=== PATIENT | female | born 1960 | race American Indian/Alaskan Native ===

== ENCOUNTER 2016-11-11 17:21 | Emergency (ER) | payer MEDICARE, MEDICAID | END 2016-11-11 18:56 | disposition left against medical advice (07) | LOC: DL.ED 17:21 | DX: Z53.21 Procedure and treatment not carried out due to patient leaving prior to being seen by health care provider (principal) ==

== ENCOUNTER 2016-11-19 18:52 | Emergency (ER) | payer MEDICARE, MEDICAID ==
[2016-11-19 20:26] LABS: CHLORIDE,CL 100 mmol/L (101-111); SODIUM,NA 132 mmol/L (135-145)
[2016-11-19] MEDS ORDERED: Sodium Chloride 0.9% 1,000 ML IV ONE (20:35)
[2016-11-19] MEDS ORDERED: Potassium Chloride 10 MEQ in Premix Bag 1 BAG IV ONE ×2 (20:35→23:07)
[2016-11-19] MEDS ORDERED: HYDROmorphone 1 MG/ML Syringe IVPUSH ONE (21:54)
[2016-11-19] MEDS ORDERED: Calcium Gluconate 10% 1 GM/10 ML SDV IVPUSH ONE (21:56)
[2016-11-19] MEDS ORDERED: HYDROmorphone 1 MG/ML Syringe IM ONE (22:04)
[2016-11-19 22:41] VITALS: BP 125/67
--- NOTE | 2016-11-19 23:07 | EDM.PDOC ---
ED HPI GI/ABDOMINAL - General Chief Complaint: Abdominal Pain Stated Complaint: LOOSE STOOLS ALL WEEK Time Seen by Provider: 11/19/16 23:02 Source of Information: Reports: Patient, Family History Limitations: Reports: No limitations - History of Present Illness INITIAL COMMENTS - FREE TEXT/NARRATIVE: ED with c/o weakness and abdominal pain, has had diarrhea for one week. estimates at least 10 times today, no blood, nausea, vomited x 4 last viet, nasuea continues today, not eating or drinking. Dialysis, last friday due tomorrow. Glucose at home in 100's. In clinic last week, started on flagyl and and bentyl, told to stop imodium. Location: generalized Quality: Reports: ache, cramping Severity: moderate Associated Symptoms (-Female): Reports: back pain, diarrhea, loss of appetite , malaise, nausea/vomiting. Denies: chest pain, groin pain, shoulder pain, bloody stools, fever/chills - Related Data Allergies/ADRs: Allergies Allergy/AdvReac Type Severity Reaction Status Date / Time azithromycin Allergy Cannot Verified 11/19/16 19:15 Remember codeine Allergy Nausea and Verified 11/19/16 19:15 Vomiting Home Meds: Home Meds Aspirin [Adult Low Dose Aspirin EC] 81 mg PO DAILY 02/24/14 [History] Fenofibric Acid 45 mg PO DAILY 02/24/14 [History] Insulin Detemir [Levemir] 60 units SQ DAILY 02/24/14 [History] Levothyroxine Sodium [Synthroid] 0.125 mg PO DAILY 02/24/14 [History] amLODIPine Besylate [Amlodipine Besylate] 10 mg PO DAILY 02/24/14 [History] Simvastatin [Zocor] 20 mg PO DAILY 03/28/14 [History] Magnesium Oxide 400 mg PO DAILY 11/21/14 [History] Cyclobenzaprine HCl 10 mg PO BID PRN 03/01/16 [History] Hydrocodone/Acetaminophen [Hydrocodon-Acetaminophen 5-325] 1 tab PO Q6H PRN [History] Midodrine 5 mg PO QID 03/01/16 [History] Potassium Chloride 20 mg PO DAILY 03/01/16 [History] Past Medical History HEENT History: Reports: Impaired vision, Sinusitis Other HEENT History: wears glasses Cardiovascular History: Reports: CAD, High cholesterol, Hypertension, SOB on exertion Respiratory History: Reports: COPD Gastrointestinal History: Reports: None, Chronic constipation Genitourinary History: Reports: Chronic renal insuffiency, Diabetic nephropathy [employer] History: Reports: None, Musculoskeletal History: Reports: Back pain, chronic Neurological History: Reports: None Psychiatric History: Reports: None Endocrine/Metabolic History: Reports: Diabetes, type II, Hypothyroidism, IDDM, Obesity/BMI 30+ Hematologic History: Reports: None Immunologic History: Reports: None Oncologic (Cancer) History: Reports: None Dermatologic History: Reports: None - Infectious Disease History Infectious Disease History: Reports: Chicken pox - Past Surgical History GI Surgical History: Reports: Cholecystectomy Social & Family History - Family History Family Medical History: Noncontributory Cardiac: Reports: Hypertension Other Cardiac Family History: Brother Endocrine/Metabolic: Reports: Diabetes, type II Other Endocrine/Metabolic Family History: Brother - Tobacco Use Smoking Status *Q: Current Every Day Smoker Years of Tobacco use: 25 Packs/Tins Daily: 0.5 Used Tobacco, but Quit: No Second Hand Smoke Exposure: Yes - Caffeine Use Caffeine Use: Reports: None - Alcohol Use Days Per Week of Alcohol Use: 0 - Recreational Drug Use Recreational Drug Use: No - Living Situation & Occupation Living situation: Reports: Occupation: unemployed ED ROS GENERAL - Review of Systems Review Of Systems: See Below Constitutional: Reports: chills, malaise, weakness, decreased appetite HEENT: Reports: No symptoms Respiratory: Reports: Cough Cardiovascular: Reports: No symptoms Endocrine: Reports: no symptoms GI/Abdominal: Reports: Abdominal pain, Diarrhea, Decreased appetite, Nausea, Vomiting. Denies: Black stool, Bloody stool : Reports: no symptoms Musculoskeletal: Reports: no symptoms Skin: Reports: no symptoms Neurological: Reports: No Symptoms ED EXAM, GI/ABD - Physical Exam Exam: See Below Exam Limited By: No limitations General Appearance: alert, mild distress Eyes: bilateral: EOMI, pale conjunctiva Ears: normal external exam Nose: normal inspection Respiratory/Chest: no respiratory distress, decreased breath sounds (bases), crackles, other (occasional moist cough non productive) Cardiovascular: regular rate, rhythm. No: no rub, JVD GI/Abdominal: no distention, hyperactive bowel sounds, tenderness. No: distention, guarding, rebound Rectal (Female) Exam: Normal Exam, Heme - stool Back Exam: normal inspection Extremities: normal inspection Neurological: alert, oriented, CN II-XII intact, normal cognition Skin Exam: Warm, Dry, Intact. No: Normal color (slight jaundice appearance) Course - Vital Signs Last Recorded V/S: Last Vital Signs Temp 96.6 F 11/19/16 22:40 Pulse 65 11/19/16 22:40 Resp 18 11/19/16 22:40 BP 125/67 11/19/16 22:40 Pulse Ox 94 L 11/19/16 22:40 - Orders/Labs/Meds Orders: Active Orders 24 hr Category Date Time Status EKG 12 Lead [EKG Documentation Completion] [RC] URGENT Care 11/19/16 19:24 Active B-TYPE NATRIURETIC PEPTIDE,BNP [CHEM] Stat Lab 11/19/16 22:42 Ordered C DIFFICILE TOXIN BY PCR [MREF] Stat Lab 11/19/16 22:59 Ordered CULTURE STOOL [RM] Stat Lab 11/19/16 22:59 Ordered POTASSIUM,K [CHEM] Stat Lab 11/19/16 22:42 Ordered TROPONIN I [CHEM] Stat Lab 11/19/16 22:42 Ordered Potassium Chloride [KCl 10 MEQ in Water 100 ML] 10 meq Med 11/19/16 23:07 Active Premix Bag 1 bag IV ONETIME Sodium Chloride 0.9% [Normal Saline] 1,000 ml Med 11/19/16 20:35 Active IV .BOLUS Medication Orders Sodium Chloride (Normal Saline) 1,000 mls @ 125 mls/hr IV .BOLUS ONE Stop: 11/20/16 04:34 Last Admin: 11/19/16 20:44 Dose: 125 mls/hr Potassium Chloride 10 meq/ (Premix) 100 mls @ 100 mls/hr IV ONETIME ONE Stop: 11/20/16 00:06 Last Admin: 11/19/16 23:12 Dose: Not Given Labs: Laboratory Tests 11/19/16 11/19/16 11/19/16 Range/Units 19:38 19:55 19:55 WBC 6.8 (5.0-10.0) 10^3/uL RBC 3.37 L (4.2-5.4) 10^6/uL Hgb 11.1 L (12.0-16.0) g/dL Hct 32.2 L (37.0-47.0) % MCV 95.5 (80-100) fL MCH 32.9 (27.0-34.0) pg MCHC 34.5 (33.0-35.0) g/dL Plt Count 318 (150-450) 10^3/uL Neut % (Auto) 62.2 (42.2-75.2) % Lymph % (Auto) 19.2 L (20.5-50.1) % [place] % (Auto) 4.4 (2-8) % Eos % (Auto) 12.9 H (1.0-3.0) % Baso % (Auto) 1.3 H (0.0-1.0) % Sodium 132 L (135-145) mmol/L Potassium 2.7 L (3.6-5.0) mmol/L Chloride 100 L (101-111) mmol/L Carbon Dioxide 21.0 (21.0-31.0) mmol/L Anion Gap 13.7 BUN 24 H (7-18) mg/dL Creatinine 5.9 H (0.6-1.3) mg/dL Est Cr Clr Drug Dosing 8.81 mL/min Estimated GFR (MDRD) 7 BUN/Creatinine Ratio 4.06 Glucose 100 (74-105) mg/dL POC Glucose 97 (70-105) mg/dl Lactic Acid (0.5-2.2) mmol/L Calcium 7.1 L (8.4-10.2) mg/dl Magnesium 1.2 L (1.8-2.5) mg/dL Total Bilirubin 0.6 (0.2-1.0) mg/dL AST 37 (10-42) IU/L ALT 14 (10-60) IU/L Alkaline Phosphatase 73 (42-121) IU/L Total Protein 6.4 L (6.7-8.2) g/dl Albumin 3.4 (3.2-5.5) g/dl Globulin 3.0 Albumin/Globulin Ratio 1.13 Amylase 10 L (28-100) U/L Lipase 17 L (22-51) U/L Ketones Negative 11/19/16 Range/Units 19:55 WBC (5.0-10.0) 10^3/uL RBC (4.2-5.4) 10^6/uL Hgb (12.0-16.0) g/dL Hct (37.0-47.0) % MCV (80-100) fL MCH (27.0-34.0) pg MCHC (33.0-35.0) g/dL Plt Count (150-450) 10^3/uL Neut % (Auto) (42.2-75.2) % Lymph % (Auto) (20.5-50.1) % [place] % (Auto) (2-8) % Eos % (Auto) (1.0-3.0) % Baso % (Auto) (0.0-1.0) % Sodium (135-145) mmol/L Potassium (3.6-5.0) mmol/L Chloride (101-111) mmol/L Carbon Dioxide (21.0-31.0) mmol/L Anion Gap BUN (7-18) mg/dL Creatinine (0.6-1.3) mg/dL Est Cr Clr Drug Dosing mL/min Estimated GFR (MDRD) BUN/Creatinine Ratio Glucose (74-105) mg/dL POC Glucose (70-105) mg/dl Lactic Acid 1.4 (0.5-2.2) mmol/L Calcium (8.4-10.2) mg/dl Magnesium (1.8-2.5) mg/dL Total Bilirubin (0.2-1.0) mg/dL AST (10-42) IU/L ALT (10-60) IU/L Alkaline Phosphatase (42-121) IU/L Total Protein (6.7-8.2) g/dl Albumin (3.2-5.5) g/dl Globulin Albumin/Globulin Ratio Amylase (28-100) U/L Lipase (22-51) U/L Ketones Meds: Medications Generic Name Dose Route Start Last Admin Trade Name Freq PRN Reason Stop Dose Admin Sodium Chloride 1,000 mls @ 125 mls/hr 11/19/16 20:35 11/19/16 20:44 Normal Saline IV 11/20/16 04:34 125 mls/hr .BOLUS ONE Administration Potassium Chloride 10 meq/ 100 mls @ 100 mls/hr 11/19/16 23:07 11/19/16 23:12 Premix IV 11/20/16 00:06 Not Given ONETIME ONE Discontinued Medications Generic Name Dose Route Start Last Admin Trade Name Freq PRN Reason Stop Dose Admin Calcium Gluconate 1 gm 11/19/16 21:56 11/19/16 22:14 Calcium Gluconate IVPUSH 11/19/16 21:57 1 gm ONETIME ONE Administration Hydromorphone HCl 0.5 mg 11/19/16 21:54 11/19/16 22:14 Dilaudid IVPUSH 11/19/16 21:55 Not Given ONETIME ONE Hydromorphone HCl 0.5 mg 11/19/16 22:04 11/19/16 22:09 Dilaudid IM 11/19/16 22:05 0.5 mg ONETIME ONE Administration Potassium Chloride 10 meq/ 100 mls @ 100 mls/hr 11/19/16 20:35 11/19/16 20:45 Premix IV 11/19/16 21:34 100 mls/hr ONETIME ONE Administration - Radiology Interpretation Free Text/Narrative:: Ct colitis, CXr Broncho pneumonia - Re-Assessments/Exams Free Text/Narrative Re-Assessment/Exam: 11/19/16 23:[address] [facility] hospitalist. Agreeable to transfer further eval and management , colitis, weakness, broncho pneumonia. Tx via [facility] Departure - Departure Time of Disposition: 23:12 Disposition: DC/Tfer to Acute Hospital 02 Condition: fair Clinical Impression: Gastroenteritis, Colitis, Weakness, Hypokalemia, Hypocalcemia, Renal failure Forms: ED Department Discharge - My Orders Last 24 Hours: My Active Orders 11/19/16 19:24 EKG 12 Lead [EKG Documentation Completion] [RC] URGENT 11/19/16 20:35 Sodium Chloride 0.9% [Normal Saline] 1,000 ml IV .BOLUS 11/19/16 22:42 B-TYPE NATRIURETIC PEPTIDE,BNP [CHEM] Stat POTASSIUM,K [CHEM] Stat TROPONIN I [CHEM] Stat 11/19/16 22:59 C DIFFICILE TOXIN BY PCR [MREF] Stat CULTURE STOOL [RM] Stat 11/19/16 23:07 Potassium Chloride [KCl 10 MEQ in Water 100 ML] 10 meq Premix Bag 1 bag IV ONETIME - Assessment/Plan Last 24 Hours: My Active Orders 11/19/16 19:24 EKG 12 Lead [EKG Documentation Completion] [RC] URGENT 11/19/16 20:35 Sodium Chloride 0.9% [Normal Saline] 1,000 ml IV .BOLUS 11/19/16 22:42 B-TYPE NATRIURETIC PEPTIDE,BNP [CHEM] Stat POTASSIUM,K [CHEM] Stat TROPONIN I [CHEM] Stat 11/19/16 22:59 C DIFFICILE TOXIN BY PCR [MREF] Stat CULTURE STOOL [RM] Stat 11/19/16 23:07 Potassium Chloride [KCl 10 MEQ in Water 100 ML] 10 meq Premix Bag 1 bag IV ONETIME
--- NOTE | 2016-11-20 13:20 | EKG ---
11/19/2016- JAMI OLGUIN - EKG done on a 55-year-old female showing sinus rhythm, heart rate of 66 beats per minute, normal axis, normal intervals, subtle ST-T wave changes on inferior leads. [facility] /[id number]
== END 2016-11-19 23:10 ==
LOC: DL.ED 18:52
DX: K52.9 Noninfective gastroenteritis and colitis, unspecified (principal); N19 Unspecified kidney failure; E87.6 Hypokalemia; E83.51 Hypocalcemia; I12.9 Hypertensive chronic kidney disease with stage 1 through stage 4 chronic kidney disease, or unspecified chronic kidney disease; N18.9 Chronic kidney disease, unspecified; I25.10 Atherosclerotic heart disease of native coronary artery without angina pectoris; E78.00 Pure hypercholesterolemia, unspecified; J44.9 Chronic obstructive pulmonary disease, unspecified; E03.9 Hypothyroidism, unspecified; E66.9 Obesity, unspecified; E11.21 Type 2 diabetes mellitus with diabetic nephropathy; F17.210 Nicotine dependence, cigarettes, uncomplicated; Z90.49 Acquired absence of other specified parts of digestive tract; Z79.82 Long term (current) use of aspirin; Z79.4 Long term (current) use of insulin; Z79.899 Other long term (current) drug therapy; Z88.1 Allergy status to other antibiotic agents; Z88.5 Allergy status to narcotic agent
CPT/HCPCS: 36415; 71020; 74176; 80053; 82009; 82150; 82272; 82962; 83605; 83690; 83735; 83880; 84132; 84484; 85025; 87045; 87493; 87804; 87899; 93005; 96365; 96366; 96368; 96372; 96375; 99285; J0610; J1170; J3480; J7030; 87046; 93010